=== PATIENT | female | born 1990 | race Caucasian/White ===

== ENCOUNTER 2016-09-26 03:56 | Emergency (ER) | payer OTHER ==
[~2016-09-26] VITALS: Ht 160 cm; Wt 113.6 kg
[~2016-09-26 03:56] MED LIST: XANAX 0.5MG0.5 MG PO; ZOLOFT 25MG25 MG PO
[2016-09-26 04:00] VITALS: TEMP 98.1
[2016-09-26] MEDS ORDERED: MAXALT10 MG (04:03)
[2016-09-26] MEDS ORDERED: PROZAC 20MG20 MG PO (04:03)
[2016-09-26] MEDS ORDERED: FIORICET 325 MG1 TA1 PO (04:27)
[2016-09-26] MEDS ORDERED: FLEXERIL 1010 MG/TAB PO (05:48)
[2016-09-26 06:33] VITALS: BP 110/71; PULSE 79
== END 2016-09-26 06:35 | disposition home or self-care (01) ==
LOC: COL.ER 03:56
DX: R51 Headache (principal); M54.2 Cervicalgia
CPT/HCPCS: J1200; J1885; J2550; J3360; J7030